=== PATIENT | female | born 1990 | race Caucasian/White ===

== ENCOUNTER 2016-10-23 11:29 | Emergency (ER) | payer OTHER ==
[~2016-10-23] VITALS: Ht 167.6 cm; Wt 79.0 kg
[~2016-10-23 11:29] MED LIST: LEVO0.5S3 EACH EYE; Z.0.BCPILL PO
[2016-10-23 11:31] VITALS: BP 132/86; PULSE 116; RESP 20; TEMP 99.7; O2SAT 98
--- NOTE | 2016-10-23 12:52 | PD ---
HPI Chief Complaint: Flank/Kidney Pain Time Seen by Provider: 12:48 Travel History International Travel<30 days: No Contact w/Intl Traveler<30days: No Traveled to known affect area: No History of Present Illness HPI Patient is a 25-year-old female presenting to emergency for evaluation of fevers , dysuria, back pain, lower abdominal pain. Patient states she noticed a foul odor to her urine about a week ago. On Friday she began to have some right mid back pain. The pain progressed and is now in her back bilaterally. She reports nausea and vomiting, a Max temp of 104 this morning. She took Tylenol at 0900. Patient reports her pain is 8 out of 10. Patient states she has a history of ureteral stents when she was a child. She denies any other significant past medical history. PFSH Past Medical History Blood Disorders: No Cardiovascular Problems: No Diminished Hearing: No Gastrointestinal Disorders: Yes Genitourinary: Yes (FREQUENT UTI AND BLADDER INFECTIONS) Hypertension: Yes Musculoskeletal: Yes Neurologic: No Respiratory: Yes Immunizations Current: No ?: Not LMP: 10/20/16 : 1 Para: 1 Miscarriage: 0 : 0 Past Surgical History Genitourinary Surgery: Yes (urethra) Other Surgery: Yes Social History Alcohol Use: No Tobacco Use: No Substance Use: No Allergies-Medications (Allergen,Severity, Reaction): Coded Allergies: Sulfa (Verified Allergy, Severe, MOUTH ULCERATIONS, 10/23/16) Reported Meds & Prescriptions Reported Meds & Active Scripts Active Pyridium (Phenazopyridine HCl) 100 Mg Tab 100 Mg PO Q8H PRN 3 Days Macrobid (Nitrofurantoin Monoh/Nitrofur Macro) 100 Mg Cap 100 Mg PO BID 10 Days Review of Systems Except as stated in HPI: all other systems reviewed are Neg General / Constitutional: Positive: Fever, Chills HENT: No: Headaches Cardiovascular: No: Chest Pain or Discomfort Respiratory: No: Shortness of Breath Gastrointestinal: Positive: Nausea, Vomiting, Abdominal Pain Genitourinary: Positive: Pelvic Pain, Flank Pain Musculoskeletal: Positive: Myalgias Neurologic: Positive: Weakness Physical Exam Narrative GENERAL: Well-developed, well-nourished, acutely ill-appearing female. Staying in no acute distress, at bedside. SKIN: Warm and dry. HEAD: Atraumatic. Normocephalic. EYES: Pupils equal and round. No scleral icterus. No injection or drainage. ENT: No nasal bleeding or discharge. Mucous membranes pink and moist. NECK: Trachea midline. No JVD. CARDIOVASCULAR: Tachycardic. No murmur appreciated. RESPIRATORY: No accessory muscle use. Clear to auscultation. Breath sounds equal bilaterally. GASTROINTESTINAL: Abdomen soft, tender to palpation in bilateral lower quadrants , more so over suprapubic region, nondistended. Hepatic and splenic margins not palpable. Positive CVAT bilaterally MUSCULOSKELETAL: No obvious deformities. No clubbing. No cyanosis. No edema. NEUROLOGICAL: Awake and alert. No obvious cranial nerve deficits. Motor grossly within normal limits. Normal speech. PSYCHIATRIC: Appropriate mood and affect; insight and judgment normal. Data Data Last Documented VS Vital Signs Date Time Temp Pulse Resp B/P Pulse Ox O2 Delivery O2 Flow Rate FiO2 10/23/16 19:12 90 18 104/62 99 Room Air 10/23/16 11:31 99.7 Orders Complete Blood Count With Diff (10/23/16 12:41) Comprehensive Metabolic Panel (10/23/16 12:41) Urinalysis - C+S If Indicated (10/23/16 12:41) Ct Abd/Pel W/O Iv Contrast (10/23/16 12:41) Ed Urine Pregnancytest Poc (10/23/16 12:41) Ondansetron Odt (Zofran Odt) (10/23/16 13:00) Urine Culture (10/23/16 12:58) Ceftriaxone Inj (Rocephin Inj) (10/23/16 17:00) Sodium Chlor 0.9% 1000 Ml Inj (Ns 1000 M (10/23/16 17:45) Sodium Chlor 0.9% 1000 Ml Inj (Ns 1000 M (10/23/16 17:45) Ketorolac Inj (Toradol Inj) (10/23/16 18:15) Labs Laboratory Tests Test 10/23/16 12:58 White Blood Count 11.4 TH/MM3 Red Blood Count 4.32 MIL/MM3 Hemoglobin 13.6 GM/DL Hematocrit 39.0 % Mean Corpuscular Volume 90.3 FL Mean Corpuscular Hemoglobin 31.6 PG Mean Corpuscular Hemoglobin 35.0 % Concent Red Cell Distribution Width 13.2 % Platelet Count 275 TH/MM3 Mean Platelet Volume 8.4 FL Neutrophils (%) (Auto) 63.5 % Lymphocytes (%) (Auto) 24.3 % Monocytes (%) (Auto) 11.7 % Eosinophils (%) (Auto) 0.1 % Basophils (%) (Auto) 0.4 % Neutrophils # (Auto) 7.3 TH/MM3 Lymphocytes # (Auto) 2.8 TH/MM3 Monocytes # (Auto) 1.3 TH/MM3 Eosinophils # (Auto) 0.0 TH/MM3 Basophils # (Auto) 0.1 TH/MM3 CBC Comment DIFF FINAL Differential Comment Urine Color YELLOW Urine Turbidity HAZY Urine pH 6.5 Urine Specific [place] 1.012 Urine Protein TRACE mg/dL Urine Glucose (UA) NEG mg/dL Urine Ketones NEG mg/dL Urine Occult Blood TRACE Urine Nitrite NEG Urine Bilirubin NEG Urine Urobilinogen LESS THAN 2.0 MG/DL Urine Leukocyte Esterase LARGE Urine RBC 13 /hpf Urine WBC 76 /hpf Urine WBC Clumps RARE Urine Squamous Epithelial 1 /hpf Cells Urine Bacteria MANY /hpf Urine Mucus FEW /lpf Microscopic Urinalysis Comment CULTURE INDICATED Sodium Level 139 MEQ/L Potassium Level 3.5 MEQ/L Chloride Level 106 MEQ/L Carbon Dioxide Level 22.1 MEQ/L Anion Gap 11 MEQ/L Blood Urea Nitrogen 11 MG/DL Creatinine 0.96 MG/DL Estimat Glomerular Filtration 70 ML/MIN Rate Random Glucose 88 MG/DL Calcium Level 8.5 MG/DL Total Bilirubin 0.8 MG/DL Aspartate Amino Transf 17 U/L (AST/SGOT) Alanine Aminotransferase 32 U/L (ALT/SGPT) Alkaline Phosphatase 117 U/L Total Protein 7.8 GM/DL Albumin 3.3 GM/DL [facility] Medical Decision Making Medical Screen Exam Complete: Yes Emergency Medical Condition: Yes Interpretation(s) Vital Signs Date Time Temp Pulse Resp B/P Pulse Ox O2 Delivery O2 Flow Rate FiO2 10/23/16 11:31 99.7 116 20 132/86 98 Room Air Differential Diagnosis Kidney stone versus pyelonephritis versus appendicitis versus obstruction versus gastroenteritis versus other Narrative Course Patient is a 25-year-old female presenting to emergency for evaluation of fevers , dysuria, back pain, abdominal pain. 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 Labs and imaging ordered and pending. Workup initiated in triage, care of patient will be transferred to provide her with a medical bed is available. Scripts Phenazopyridine (Pyridium)100 Mg [id number] Mg PO Q8H PRN (DYSURIA) 3 Days Ref 0 Prov:Nola Graham DO 10/23/16 Nitrofurantoin Monohydrate Macrocrystals (Macrobid)100 Mg [id number] Mg PO BID 10 Days Ref 0 Prov:Nola Graham DO 10/23/16 Ping Arcos Oct 23, 2016 12:52
[2016-10-23] MEDS ORDERED: ONDANSETRON ODT 4 MG TAB PO ONE (13:00)
[2016-10-23 13:09] LABS: AUTOMATED NEUTROPHIL # 7.3 TH/MM3 (1.8-7.7); BASOPHIL # 0.1 TH/MM3 (0-0.2); BASOPHIL % 0.4 % (0.0-2.0); EOSINOPHIL % 0.1 % (0.0-4.0); HEMO FLAGS DIFF FINAL; LYMPH % 24.3 % (9.0-44.0); LYMPHOCYTE # 2.8 TH/MM3 (1.0-4.8); MEAN CELL VOLUME 90.3 FL (80.0-100.0); MEAN CORPUSCULAR HEMOGLOBIN 31.6 PG (27.0-34.0); MONO % 11.7 % (0.0-8.0); NEUT % 63.5 % (16.0-70.0); PLATELET COUNT 275 TH/MM3 (150-450); RED BLOOD COUNT 4.32 MIL/MM3 (4.00-5.30); RED CELL DISTRIBUTION WIDTH 13.2 % (11.6-17.2); WHITE BLOOD COUNT 11.4 TH/MM3 (4.0-11.0)
[2016-10-23 13:17] LABS: BACTERIA, URINE MANY /hpf; BLOOD, URINE TRACE (NEG); GLUCOSE,URINE NEG (NEG); KETONE, URINE NEG (NEG); MUCUS URINE FEW /lpf (OCC); NITRITE,URINE NEG (NEG); PH, URINE 6.5 (5.0-8.5); SQUAMOUS EPITHELIAL CELL URINE 1 /hpf (0-5); URINE COLOR YELLOW (YELLW/STRAW)
[2016-10-23 13:21] LABS: COMMENT (UR) CULTURE INDICATED; CULTURE IF INDICATED CULTURE INDICATED
[2016-10-23 13:25] LABS: ALT (GPT) 32 U/L (10-53); ANION GAP 11 MEQ/L (5-15); AST (GOT) 17 U/L (15-37); BICARBONATE 22.1 MEQ/L (21.0-32.0); BLOOD UREA NITROGEN 11 MG/DL (7-18); CHLORIDE 106 MEQ/L (98-107); GLOMERULAR FILTRATION RATE 70 ML/MIN (>89); POTASSIUM 3.5 MEQ/L (3.5-5.1); SODIUM (NA) 139 MEQ/L (136-145)
[2016-10-23 13:27] LABS: ALKALINE PHOSPHATASE 117 U/L (45-117); TOTAL BILIRUBIN ADULT 0.8 MG/DL (0.2-1.0)
[2016-10-23 14:42] VITALS: BP 116/73; PULSE 89; RESP 18; O2SAT 97
--- NOTE | 2016-10-23 15:08 | RADRPT ---
EXAM DATE/TIME: 10/23/2016 14:26 [place] COMPARISON: CT ABDOMEN & PELVIS W/O CONTRAST, April 16, 2013, 20:31. INDICATIONS : Right flank pain w fever, nausea and vomiting. ORAL CONTRAST: No oral contrast ingested. RADIATION DOSE: 8.17 CTDIvol (mGy) MEDICAL HISTORY : Hypertension. SURGICAL HISTORY : None. ENCOUNTER: Initial ACUITY: 1 day PAIN SCALE: 5/10 LOCATION: Right flank TECHNIQUE: Volumetric scanning of the abdomen and pelvis was performed. Using automated exposure control and ad justment of the mA and/or kV according to patient size, radiation dose was kept as low as reasonably achievable to obtain optimal diagnostic quality images. FINDINGS: LOWER LUNGS: The visualized lower lungs are clear. LIVER: Homogeneous density without lesion. There is no dilation of the biliary tree. No calcified gallston es. SPLEEN: Normal size without lesion. PANCREAS: Within normal limits. KIDNEYS: Normal in size and shape. There is no mass, stone, or hydronephrosis. ADRENAL GLANDS: Within normal limits. VASCULAR: There is no aortic aneurysm. BOWEL/MESENTERY: The stomach, small bowel, and colon demonstrate no acute abnormality. There is no free intraperitone al air or fluid. The appendix is normal. ABDOMINAL WALL: There is a stable small fat containing umbilical hernia. RETROPERITONEUM: There is no lymphadenopathy. BLADDER: No wall thickening or mass. REPRODUCTIVE: Within normal limits. INGUINAL: There is no lymphadenopathy or hernia. MUSCULOSKELETAL: Within normal limits for patient age. CONCLUSION: No abnormality is identified to explain the clinical symptoms. No renal stones are visualized and the re are no signs to indicate urinary obstruction. Also, the appendix is normal. James Angela MD on October 23, 2016 at 15:03 Board Certified Radiologist. This report was verified electronically.
[2016-10-23] MEDS ORDERED: cefTRIAXone INJ 1,000 MG in SODIUM CHLORIDE 0.9% INJ 100 ML IV ONE (17:00)
[2016-10-23] MEDS ORDERED: SODIUM CHLOR 0.9% 1000 ML INJ 1,000 ML IV ONE ×2 (17:45)
[2016-10-23] MEDS ORDERED: KETOROLAC TROMETHAMINE 30 MG/ML (IVP) VIAL IV PUSH ONE (18:15)
[2016-10-23 18:34] VITALS: BP 101/57; PULSE 92; RESP 18; O2SAT 97
[2016-10-23] MEDS ORDERED: MACR100C2 PO (18:53)
[2016-10-23] MEDS ORDERED: PHEN0.4T PO (18:53)
--- NOTE | 2016-10-23 18:54 | PD ---
Physical Exam Date Seen by Provider: Oct 23, 2016 Data Data Last Documented VS Vital Signs Date Time Temp Pulse Resp B/P Pulse Ox O2 Delivery O2 Flow Rate FiO2 10/23/16 19:12 90 18 104/62 99 Room Air 10/23/16 11:31 99.7 Orders Complete Blood Count With Diff (10/23/16 12:41) Comprehensive Metabolic Panel (10/23/16 12:41) Urinalysis - C+S If Indicated (10/23/16 12:41) Ct Abd/Pel W/O Iv Contrast (10/23/16 12:41) Ed Urine Pregnancytest Poc (10/23/16 12:41) Ondansetron Odt (Zofran Odt) (10/23/16 13:00) Urine Culture (10/23/16 12:58) Ceftriaxone Inj (Rocephin Inj) (10/23/16 17:00) Sodium Chlor 0.9% 1000 Ml Inj (Ns 1000 M (10/23/16 17:45) Sodium Chlor 0.9% 1000 Ml Inj (Ns 1000 M (10/23/16 17:45) Ketorolac Inj (Toradol Inj) (10/23/16 18:15) Labs Laboratory Tests Test 10/23/16 12:58 White Blood Count 11.4 TH/MM3 Red Blood Count 4.32 MIL/MM3 Hemoglobin 13.6 GM/DL Hematocrit 39.0 % Mean Corpuscular Volume 90.3 FL Mean Corpuscular Hemoglobin 31.6 PG Mean Corpuscular Hemoglobin 35.0 % Concent Red Cell Distribution Width 13.2 % Platelet Count 275 TH/MM3 Mean Platelet Volume 8.4 FL Neutrophils (%) (Auto) 63.5 % Lymphocytes (%) (Auto) 24.3 % Monocytes (%) (Auto) 11.7 % Eosinophils (%) (Auto) 0.1 % Basophils (%) (Auto) 0.4 % Neutrophils # (Auto) 7.3 TH/MM3 Lymphocytes # (Auto) 2.8 TH/MM3 Monocytes # (Auto) 1.3 TH/MM3 Eosinophils # (Auto) 0.0 TH/MM3 Basophils # (Auto) 0.1 TH/MM3 CBC Comment DIFF FINAL Differential Comment Urine Color YELLOW Urine Turbidity HAZY Urine pH 6.5 Urine Specific [place] 1.012 Urine Protein TRACE mg/dL Urine Glucose (UA) NEG mg/dL Urine Ketones NEG mg/dL Urine Occult Blood TRACE Urine Nitrite NEG Urine Bilirubin NEG Urine Urobilinogen LESS THAN 2.0 MG/DL Urine Leukocyte Esterase LARGE Urine RBC 13 /hpf Urine WBC 76 /hpf Urine WBC Clumps RARE Urine Squamous Epithelial 1 /hpf Cells Urine Bacteria MANY /hpf Urine Mucus FEW /lpf Microscopic Urinalysis Comment CULTURE INDICATED Sodium Level 139 MEQ/L Potassium Level 3.5 MEQ/L Chloride Level 106 MEQ/L Carbon Dioxide Level 22.1 MEQ/L Anion Gap 11 MEQ/L Blood Urea Nitrogen 11 MG/DL Creatinine 0.96 MG/DL Estimat Glomerular Filtration 70 ML/MIN Rate Random Glucose 88 MG/DL Calcium Level 8.5 MG/DL Total Bilirubin 0.8 MG/DL Aspartate Amino Transf 17 U/L (AST/SGOT) Alanine Aminotransferase 32 U/L (ALT/SGPT) Alkaline Phosphatase 117 U/L Total Protein 7.8 GM/DL Albumin 3.3 GM/DL [facility] Medical Record Reviewed: Yes Supervised Visit with MADYSON: Yes Interpretation(s) Vital Signs Date Time Temp Pulse Resp B/P Pulse Ox O2 Delivery O2 Flow Rate FiO2 10/23/16 18:34 92 18 101/57 97 Room Air 10/23/16 14:42 89 18 116/73 97 Room Air 10/23/16 11:31 99.7 116 20 132/86 98 Room Air CBC & BMP Diagram 10/23/16 12:58 Laboratory Tests Test 10/23/16 12:58 White Blood Count 11.4 TH/MM3 (4.0-11.0) Red Blood Count 4.32 MIL/MM3 (4.00-5.30) Hemoglobin 13.6 GM/DL (11.6-15.3) Hematocrit 39.0 % (35.0-46.0) Mean Corpuscular Volume 90.3 FL (80.0-100.0) Mean Corpuscular Hemoglobin 31.6 PG (27.0-34.0) Mean Corpuscular Hemoglobin 35.0 % Concent (32.0-36.0) Red Cell Distribution Width 13.2 % (11.6-17.2) Platelet Count 275 TH/MM3 (150-450) Mean Platelet Volume 8.4 FL (7.0-11.0) Neutrophils (%) (Auto) 63.5 % (16.0-70.0) Lymphocytes (%) (Auto) 24.3 % (9.0-44.0) Monocytes (%) (Auto) 11.7 % (0.0-8.0) Eosinophils (%) (Auto) 0.1 % (0.0-4.0) Basophils (%) (Auto) 0.4 % (0.0-2.0) Neutrophils # (Auto) 7.3 TH/MM3 (1.8-7.7) Lymphocytes # (Auto) 2.8 TH/MM3 (1.0-4.8) Monocytes # (Auto) 1.3 TH/MM3 (0-0.9) Eosinophils # (Auto) 0.0 TH/MM3 (0-0.4) Basophils # (Auto) 0.1 TH/MM3 (0-0.2) CBC Comment DIFF FINAL Differential Comment Urine Color YELLOW (YELLW/STRAW) Urine Turbidity HAZY (CLEAR) Urine pH 6.5 (5.0-8.5) Urine Specific [place] 1.012 (1.002-1.035) Urine Protein TRACE mg/dL (NEG-TRACE) Urine Glucose (UA) NEG mg/dL (NEG) Urine Ketones NEG mg/dL (NEG) Urine Occult Blood TRACE (NEG) Urine Nitrite NEG (NEG) Urine Bilirubin NEG (NEG) Urine Urobilinogen LESS THAN 2.0 MG/DL (LESS THAN 2.0) Urine Leukocyte Esterase LARGE (NEG) Urine RBC 13 /hpf (0-3) Urine WBC 76 /hpf (0-5) Urine WBC Clumps RARE (NONE) Urine Squamous Epithelial 1 /hpf (0-5) Cells Urine Bacteria MANY /hpf (NONE) Urine Mucus FEW /lpf (OCC) Microscopic Urinalysis Comment CULTURE INDICATED Sodium Level 139 MEQ/L (136-145) Potassium Level 3.5 MEQ/L (3.5-5.1) Chloride Level 106 MEQ/L (98-107) Carbon Dioxide Level 22.1 MEQ/L (21.0-32.0) Anion Gap 11 MEQ/L (5-15) Blood Urea Nitrogen 11 MG/DL (7-18) Creatinine 0.96 MG/DL (0.50-1.00) Estimat Glomerular Filtration 70 ML/MIN (>89) Rate Random Glucose 88 MG/DL (74-106) Calcium Level 8.5 MG/DL (8.5-10.1) Total Bilirubin 0.8 MG/DL (0.2-1.0) Aspartate Amino Transf 17 U/L (15-37) (AST/SGOT) Alanine Aminotransferase 32 U/L (10-53) (ALT/SGPT) Alkaline Phosphatase 117 U/L (45-117) Total Protein 7.8 GM/DL (6.4-8.2) Albumin 3.3 GM/DL (3.4-5.0) Last Impressions Abdomen/Pelvis CT 10/23/16 1241 Signed Impressions: Service Date/Time: Sunday, October 23, 2016 14:26 - CONCLUSION: No abnormality is identified to explain the clinical symptoms. No renal stones are visualized and there are no signs to indicate urinary obstruction. Also, the appendix is normal. James Angela MD Differential Diagnosis Cystitis, pyelonephritis, kidney stones Narrative Course I, Dr. Graham, have reviewed the advance practice practitioner's documentation and am in agreement, met with the patient face to face, made the diagnosis, and the medical decision making was done by me. *My assessment and Findings: Pyelonephritis - patient with bilateral flank pain, urine analysis positive for large leuk esterase, 76 white blood cells, rare white blood cell clumps, many bacteria, urine culture sent. Patient was given a dose of IV Rocephin in the emergency room, plan to send patient home on Macrobid as previous cultures were reviewed and patient was resistant to Levaquin and Cipro in the past. Patient also has allergy to sulfa, previous cultures are sensitive to Macrobid. Patient is a 25-year-old female who presents to emergency room with complaints of flank pain. Patient reports that 2 weeks ago, she had dysuria with urinary urgency and frequency. Patient reports that she tried taking [id number] medications for her symptoms, reports no relief of symptoms. Patient reports that on Friday, she began to have right-sided kidney pain. Reports that she was going on vacation so she ignored her symptoms, reports that she woke up this morning and had bilateral flank pain and noticed increased dark urine. Reports that she had a temperature of 104 this morning and had nausea and vomiting with her flank pain. Patient reports that she has history of multiple urinary tract infection this past, patient concerned for possible UTI. Patient comfortable while in the emergency room. WBC 11.4, hemoglobin 13.6, hematocrit 39, platelets 275 Sodium 139, potassium 3.5, BUN 11, creatinine 0.96, carbon dioxide 22.1, AST 17 , ALT 32, alkaline phosphatase 117 UA with large esterase, 13 red blood cells, 76 white blood cells, many bacteria Patient with most likely cystitis, given her flank pain, will treat as pyelonephritis Last Impressions Abdomen/Pelvis CT 10/23/16 1241 Signed Impressions: Service Date/Time: Sunday, October 23, 2016 14:26 - CONCLUSION: No abnormality is identified to explain the clinical symptoms. No renal stones are visualized and there are no signs to indicate urinary obstruction. Also, the appendix is normal. James Angela MD Urine culture was sent, patient will follow-up with her primary care doctor and return to emergency room his symptoms progress or worsen or if she develops worsening fevers or chills. Diagnosis Primary Impression: Pyelonephritis Patient Instructions: General Instructions Additional Instruction: Please provide patient with a copy of her lab work and studies a discharge Please take all medications as prescribed Please follow-up with all cultures from today Return to the emergency room if symptoms progress or worsen Please call your primary care doctor as soon as possible for earliest follow-up Your prescribed Macrobid for your bladder infection, your also prescribed Pyridium to help with the burning sensation with urination. Please note that Pyridium will make your urine appear reddish orange. Med/Other Pt SpecificInfo: Prescription(s) given Scripts Phenazopyridine (Pyridium)100 Mg [id number] Mg PO Q8H PRN (DYSURIA) 3 Days Ref 0 Prov:Nola Graham DO 10/23/16 Nitrofurantoin Monohydrate Macrocrystals (Macrobid)100 Mg [id number] Mg PO BID 10 Days Ref 0 Prov:Nola Graham DO 10/23/16 Disposition: 01 DISCHARGE HOME Condition: Stable Nola Graham DO Oct 23, 2016 18:54
[2016-10-23 19:12] VITALS: BP 104/62; PULSE 90; RESP 18; O2SAT 99
[2016-10-23 20:27] VITALS: BP 105/68
== END 2016-10-23 20:42 | disposition home or self-care (01) ==
LOC: NEPA 11:29
DX: N12 Tubulo-interstitial nephritis, not specified as acute or chronic (principal); B96.20 Unspecified Escherichia coli [E. coli] as the cause of diseases classified elsewhere; R11.2 Nausea with vomiting, unspecified; I10 Essential (primary) hypertension; Z87.448 Personal history of other diseases of urinary system; Z87.19 Personal history of other diseases of the digestive system; Z87.39 Personal history of other diseases of the musculoskeletal system and connective tissue; Z87.09 Personal history of other diseases of the respiratory system
CPT/HCPCS: 74176; 80053; 81001; 84703; 85025; 87077; 87086; 87186; 96361; 96365; 96375; 99284; J0696; J1885; J7030